=== PATIENT | male | born 1950 | race Caucasian/White ===

== ENCOUNTER 2016-05-01 10:55 | Emergency (ER) | payer MEDICARE, OTHER ==
[2016-05-01 11:03] VITALS: BP 153/81; PULSE 77; RESP 16; O2SAT 97
--- NOTE | 2016-05-01 11:37 | DRSVH ---
PROCEDURE: CT BRAIN WITHOUT CONTRAST ([id number]) INDICATIONS: LEFT SIDED WEAKNESS TECHNIQUE: Noncontrast 4.5 mm thick angled axial sections acquired from the foramen magnum to the vertex, with c oronal reformats. COMPARISON: None. FINDINGS: Image quality: Excellent. CSF spaces: Basal cisterns are patent. No extra-axial fluid collections. The ventricles are symmet juli in size and shape. Brain: There is a right frontal temporal focus of hemorrhage measuring approximately 51 mm AP by 43 m m transverse. There is significant surrounding vasogenic edema producing 6 mm right to left midline s hift. There is cerebral volume loss for age, with resultant ventricular and sulcal prominence. There are periventricular and deep white matter chronic small vessel ischemic changes. There is intracran ial internal carotid artery atherosclerosis. Skull and face: Calvarium and visualized facial bones appear intact, without suspicious lesions. Sinuses: Visualized sinuses and mastoids are clear. IMPRESSION: 1. Right frontal temporal focus of hemorrhage with vasogenic edema and midline shift as above. This could represent ischemic hemorrhage. However, underlying mass lesion with subsequent hemorrhage and v asogenic edema cannot be excluded. Recommend interval followup MRI brain with and without contrast af ter hemorrhage resolution for additional evaluation. The above findings were discussed with Dr. Everardo Hernandez on 05/01/16 at 11:29 AM. Dictated by: Teresita Castaneda M.D. on 05/01/2016 at 11:35 Approved by: Teresita Castaneda M.D. on 05/01/2016 at 11:35
--- NOTE | 2016-05-01 11:50 | ED.REPORT ---
HPI-Stroke / CVA May 01, 2016 ED Provider: Everardo Hernandez MD Patient is a 65 year old male who presents to the ED via EMS complaining of L sided weakness onset 2 months ago. When his symptoms started, he was experiencing tongue trembling, facial twitching, and L side facial numbness. His initial symptoms resolved after a week before progressing to extremity weakness. His symptoms have progressed to extreme weakness in his L leg and loss of sensation and movement in L arm. He is unable to ambulate independently. He is not experiencing speech deficits, incontinence, or any other symptoms. Per family, his decision making has been slightly impaired. He has not been to a doctor in 20 years and does not take any medications. Nursing Notes Stated Complaint: LEFT SIDE WEAKNESS Chief Complaint: Neuro Symptoms/ Deficits Nursing Notes Reviewed: Yes ([employer], not on any medicaitons) Allergies: Coded Allergies: No Known Allergies (Unverified , 05/01/16) General Time Seen by Provider: 11:35 Chief Complaint Weakness Left-sided Hx Obtained From: Patient, Spouse, Daughter Arrived By: Ambulance Time last known well 2 mo ago Sudden in Onset?: Yes Progression Since Onset: Gradually worsening Recent Healthcare: No recent doctor visit Past Medical History Past Medical History Melanoma (excised 20 years ago) Smoking History Current Every Day Smoker Social History Alcohol Use: 1-3 per day Other Social History: Good social support, Review of Systems Neurologic: Reports: Weakness (L side ), Denies: Slurred speech, Vision change Complete sys rev & neg: except as marked. Physical Exam Initial Vital Signs Vital Signs (First) Date Time Temp Pulse Resp B/P Pulse Ox O2 Delivery O2 Flow Rate FiO2 05/01/16 11:03 36.7 77 16 153/81 97 Room Air Initial VS: Reviewed, Vital signs normal Abdomen / GI: Soft, Non-tender Skin: Warm, Dry Psychiatric: Mood/affect normal, Behavior normal General/Constitutional: Awake, Alert, No acute distress Answers questions appropriately. Head / Eyes: Normocephalic Neck: Full range of motion Respiratory / Chest: No respiratory distress Cardiovascular: Heart rate NL, Regular rhythm, Heart sounds NL Neurologic: Speech NL Flaccid L arm paralysis and weakness in L leg Interpretation & Diagnostics Lab Results Interpretation Result Diagram: 05/01/16 1140 05/01/16 1140 Test 05/01/16 11:40 05/01/16 12:53 White Blood Count 9.4th/mm3 (3.8-10.1) Red Blood Count 4.57mil/mm3 (4.40-5.80) Hemoglobin 17.1g/dL (13.8-17.2) Hematocrit 46.2% (41.0-50.0) Mean Corpuscular Volume 101.1fL (81-100) Mean Corpuscular Hemoglobin 37.4pg (27.0-35.0) Mean Corpuscular Hemoglobin Concent 37.0% (32.0-37.0) Red Cell Distribution Width 11.2% (12.3-15.4) Platelet Count 254bil/L (150-400) Neutrophils (%) (Auto) 77.9% (40-74) Lymphocytes (%) (Auto) 12.8% (14-46) Monocytes (%) (Auto) 8.3% (4-12) Eosinophils (%) (Auto) 0.4% (0-5) Basophils (%) (Auto) 0.2% (0-3) Prothrombin Time 11.0sec (8.1-12.5) Prothromb Time International Ratio 1.03ratio Activated Partial Thromboplast Time 27.8sec (22.8-33.0) Sodium Level 131mEq/L (134-144) Potassium Level 4.4mEq/L (3.5-5.2) Chloride Level 92mEq/L (97-108) Carbon Dioxide Level 23mmol/L (18-29) Blood Urea Nitrogen 12mg/dL (8-27) Creatinine 0.81mg/dL (0.76-1.27) Estimat Glomerular Filtration Rate 101mL/min (>59) Glucose Level 113mg/dL (60-99) Calcium Level 10.1mg/dL (8.5-10.1) Total Bilirubin 0.5mg/dL (0.0-1.2) Aspartate Amino Transf (AST/SGOT) 38U/L (0-50) Alanine Aminotransferase (ALT/SGPT) 42U/L (0-44) Alkaline Phosphatase 72U/L (25-160) Troponin T < 0.010ug/L (0.0-0.011) Total Protein 8.0g/dL (6.4-8.4) Albumin 3.7g/dL (3.4-5.0) Urine Color Straw (YELLOW) Urine Appearance Hazy (CLEAR,HAZY) Urine pH 6.5 (5.0-8.0) Urine Specific Rosebud 1.005 (1.003-1.035) Urine Protein Negativemg/dL (NEG,TRACE) Urine Glucose (UA) Negativemg/dL (NEGATIVE) Urine Ketones 15mg/dL (NEGATIVE) Urine Occult Blood Negative (NEGATIVE) Urine Nitrite Negative (NEGATIVE) Urine Bilirubin Negative (NEGATIVE) Urine Urobilinogen Normalmg/dL (NORMAL) Urine Leukocyte Esterase Negative (NEGATIVE) Urine RBC 0-2/hpf (0-2) Urine WBC 0-5/hpf (0-5) Urine Epithelial Cells Occasional/hpf (NONE-MOD) Urine Crystals None seen (NONE SEEN) Urine Bacteria None/hpf (NONE-FEW) Urine Hyaline Casts None/lpf (NONE) Urine Granular Casts None seen (NONE SEEN) Urine Waxy Casts None seen (NONE SEEN) Urine Red Blood Cell Casts None seen (NONE SEEN) Urine White Blood Cell Casts None seen (NONE SEEN) Urine Mucus None seen (None Seen) Urine Trichomonas None seen (NONE SEEN) Urine Yeast None (NONE SEEN) Urinalysis Comment None Urine Culture Reflexed Not indicated Lab Results Interpretation: CBC normal + CMP normal Glucose normal Normal ECG Interpretation ECG Interpretation: normal sinus rate 76 Time: 12:16 Interpreted by: ED physician CT Head Interpretation CT BRAIN: IMPRESSION: 1. Right frontal temporal focus of hemorrhage with vasogenic edema and midline shift as above. This could represent ischemic hemorrhage. However, underlying mass lesion with subsequent hemorrhage and vasogenic edema cannot be excluded. Recommend interval followup MRI brain with and without contrast after hemorrhage resolution for additional evaluation. The above findings were discussed with Dr. Everardo Hernandez on 05/01/16 at 11:29 AM. Dictated by: Teresita Castaneda M.D. on 05/01/2016 at 11:35 Approved by: Teresita Castaneda M.D. on 05/01/2016 at 11:35 Study: Head CT no contrast Interpretation / Wet Read by: Interpret - Radiologist Re-Eval/Medical Decision Med Decision/Clinical Course This is a 65-year-old male who is brought by family with a complaint of worsening left-sided weakness with neurologic symptoms are progressive over the past 2 months. Reports he does not see doctors, he does not take any medicines- and this includes [id number] medications such as aspirin, but that the beginning of February he developed some "twitching" of the left-sided his face. It was then followed by progressive weakness of left arm. Her daughter who is the one who brought patient in today said that she visited for [facility] and nothing was clinically apparent to her at that time-although apparently has been having left arm and left leg symptoms. They have progressed which she visited before Charmaine, he is clearly having troubles and she tried to persuade and come in was unsuccessful. However his weakness has been progressive he now has a flaccid paralysis the left upper extremity, he cannot ambulate, he cannot perform ADLs, and she is finally been able to convince him to come in. He denies headache. He denies speech changes. His insight has been poor times according to the family said he would nausea once and ascites having weakness and then make a statement or attempted activity which it was clear he could not do because of the known weakness. On exam the patient's awake alert mentating. He has a skin lesion on the right spiritism-he does have a prior history of a melanoma removed 20+ years ago. He has a flaccid paralysis left arm, and severe weakness in the left leg and is able to lift it up in the bed with immediate drift similar falls down and touches the bed. The the NIH stroke scale for full detail testing. He would not cooperate for peripheral vision testing for visual huggins. A contrast head CT reveals marked abnormality with components of a hemorrhage, and the possibility of an underlying mass. Labwork was normal. Glucose was normal. Images were sent to [facility], who after review as accepted the patient in transfer. The accepting neurosurgeon is Dr. Park cases also been discussed with the ED attending Dr. Peña. he is being transferred by [facility]. He has been stable for 2 months, is awake alert his vitals are normal. His mildly hypertensive but has not required any aggressive management in the department. Source of Hx: Old records (none in EMR) Re-Evaluation/Progress : Time of Eval: 11:45 )( Re-Eval Neurologic Exam: Speech normal Re-Evaluation/Progress Note: Discussed desire to transfer to [place]. Patient understands and agrees with plan. All questions addressed at this time. NIH Stroke Scale : Level of Consciousness: Alert and responsive (0) Ask Month & Age: Both questions right (0) Open/Close Eyes/Hand Utility System Operator: Performs both tasks (0) Horizontal EO Movements: None (0) Visual Huggins: No visual loss (0) (Does not understand peripheral vision test, unable to assess) Facial Palsy: Normal symmetry (0) Right Arm Motor Drift (10s): No drift 10 sec (0) Left Arm Motor Drift (10s): No effort, limb fails (3) Right Leg Motor Drift (5s): No drift 5 sec (0) Left Leg Motor Drift (5s): Drift, hits bed (2) Limb Ataxia FNF/Heel-Greer: No ataxia (0) Sensation (Arms/Legs/Face): P-prick dull but felt (1) (L side ) Language Aphasia: No aphasia, normal (0) Dysarthria: No dysarthria, normal (0) NIHSS Score: 6 Time NIHSS Performed: 11:51 Date NIHSS Performed: May 01, 2016 Consultation #1: Call Returned at: 11:57 Note: Called [facility] to discuss desire for transfer. They will review imaging and return call. Consultation #2: Call Returned at: 13:02 Note: Discussed patient's case. Vivian will see patient at [facility]. Differential Diagnosis: Positive: Intraparench hemorrhage, Malignancy, Mass lesion (suspected), Negative: Atrial fibrillation, Atypical migraine, Cartwright's Palsy, Cerebellar hemorrhage, Closed head injury, Electrolyte disorder, Encephalitis, Epidural hemorrhage, Hyperglycemia, Hypoglycemia, Meningitis, Mult Scleros exacerbation, Seizure disorder, Subarachnoid hemorrhage, Subdural hemorrhage, Systemic infection Counseled Regarding: Diagnosis, Lab results, Need for transfer Patient Discharge & Departure Impression: Primary Impression: Intracranial hemorrhage Additional Impressions: Intracranial mass Left hemiplegia Disposition: Transfer, Acute Care Facility Transfer Requested at: 11:57 Receiving Hospital: [facility] Transfer Accepted: Yes Transfer Accepted at: 13:02 Transfer Reason: Higher level of care Spoke with: Hospitalist Patient Status: Stable for transfer Patient Informed: Yes Crit Care Except Billable Proc Time Spent: 30-74 minutes Services Performed: Patient management by me, Time spent at bedside, Reviewing test results, Reviewing imaging, Discussing patient care, Documentation in record, Time with fam/surrogate Scribe Attestation Portions of this note were transcribed by Steve Norton. I, Dr. Hernandez personally performed the history, physical exam and medical decision-making; I reviewed and confirmed the accuracy of the information in the transcribed note. Signed by: Steve Norton 05/01/16, 1348 Everardo Hernandez MD May 01, 2016 11:50 STEVE NORTON May 01, 2016 12:06
[2016-05-01 12:15] LABS: INR 1.03 ratio
[2016-05-01 12:17] LABS: BASOPHILS % (AUTO) 0.2 % (0-3); EOSINOPHILS % (AUTO) 0.4 % (0-5); MONOCYTES % (AUTO) 8.3 % (4-12); Mean Corpuscular Hemoglobin 37.4 pg (27.0-35.0); Mean Corpuscular Volume 101.1 fL (81-100); NEUTROPHILS % (AUTO) 77.9 % (40-74); Platelet Count 254 bil/L (150-400)
[2016-05-01 12:28] LABS: TROPONIN T < 0.010 ug/L (0.0-0.011)
[2016-05-01 13:45] VITALS: BP 146/79; PULSE 77; RESP 20; O2SAT 93
[2016-05-01 13:48] LABS: APPEARANCE,URINE HAZY (CLEAR,HAZY); COLOR,URINE STRAW (YELLOW); OCCULT BLOOD,URINE NEGATIVE (NEGATIVE); PH,URINE 6.5 (5.0-8.0); UROBILINOGEN,URINE NORMAL (NORMAL)
[2016-05-23] MEDS ORDERED: DOCU-41 PO (13:58)
[2016-05-23] MEDS ORDERED: PHN100C PO (13:58)
[2016-05-23] MEDS ORDERED: ALBU8.5H2 INHALATION (13:58)
[2016-05-23] MEDS ORDERED: NIC7 TRANSDERM (13:58)
[2016-05-23] MEDS ORDERED: SODI1TAB2 PO (13:58)
[2016-05-23] MEDS ORDERED: OXYC5TAB72 PO (13:58)
[2016-05-23] MEDS ORDERED: DEX1 PO (13:58)
[2016-05-23] MEDS ORDERED: PANT40TA3 PO (13:58)
[2016-05-23] MEDS ORDERED: TRAZ-115 PO (13:58)
[2016-05-23] MEDS ORDERED: MELA1TAB28 PO (13:58)
[2016-05-23] MEDS ORDERED: ENOX40DI8 SUBQ (13:58)
[2016-06-13] MEDS ORDERED: TEMODAR PO (13:55)
[2016-09-06] MEDS ORDERED: CHOL200025 PO (14:07)
== END 2016-05-01 14:21 | disposition short-term general hospital (02) ==
LOC: SED 10:55
DX: I62.9 Nontraumatic intracranial hemorrhage, unspecified (principal); G81.04 Flaccid hemiplegia affecting left nondominant side; R90.0 Intracranial space-occupying lesion found on diagnostic imaging of central nervous system; F17.200 Nicotine dependence, unspecified, uncomplicated

== ENCOUNTER 2016-08-20 17:42 | Emergency (ER) | payer OTHER ==
[~2016-08-20] VITALS: Ht 177.8 cm; Wt 79.5 kg
[~2016-08-20 17:42] MED LIST: ALBU8.5H2 INHALATION; DEX1 PO; DOCU-41 PO; ENOX40DI8 SUBQ; MELA1TAB28 PO; NIC7 TRANSDERM; OXYC5TAB72 PO; PANT40TA3 PO; PHN100C PO; SODI1TAB2 PO; TEMODAR PO; TRAZ-115 PO
[2016-08-20 17:48] VITALS: BP 139/78; PULSE 69; O2SAT 96
--- NOTE | 2016-08-20 18:11 | ED.REPORT ---
HPI-Trauma Minor / Fall Date of Service August 20, 2016 ED Provider: The patient is a 65 year old male with history of stage IV glioblastoma with recent resection, who presents to the emergency department by EMS after he had a fall. The patient was transferring from bed to his wheelchair when his leg came out from under him and he fell to the floor. He hit his head and ribs. He did not lose consciousness. At this time he complains of a mild headache and mild rib pain. He denies visual changes, numbness, weakness, nausea or vomiting. He is not on any blood thinners. Nursing Notes Stated Complaint: GLF Chief Complaint: Head, Face, Neck Trauma Nursing Notes Reviewed: Yes Allergies: Coded Allergies: No Known Allergies (Unverified , 05/22/16) Scheduled ([temodar]) 150 MG PO M-F/RADONC Albuterol HFA (Proair HFA) 8.5 Gm Hfa.aer.ad 2 PUFFS INHALATION q6hrs Dexamethasone (Dexamethasone) 1 Mg Tab 4 MG PO BID OF 07/31/16 Enoxaparin Sodium (Enoxaparin Sodium) 40 Mg/0.4 Ml Syringe 40 MG SUBQ DAILY Melatonin/Pyridoxine HCl (B6) (Melatonin 3 mg Tablet) 1 Each Tablet 2 EACH PO HS Nicotine 7 mg/24 hr Patch (Nicotine 7 mg/24 hr Patch) 1 Each Patch.td24 1 PATCH TRANSDERM DAILY Pantoprazole DR (Pantoprazole DR) 40 Mg Tablet.dr 40 MG PO DAILY Phenytoin Sodium ER (Dilantin) 100 Mg Capsule 500 MG PO HS Sodium Chloride (Sodium Chloride) 1 Gm Tablet 1 GM PO DAILY Scheduled PRN Docusate Sodium (Colace) 100 Mg Capsule 100 MG PO BID PRN PRN For Constipation Trazodone (Trazodone) 50 Mg Tablet 25 MG PO HS PRN PRN Insomnia oxyCODONE (oxyCODONE) 5 Mg Tablet 5-10 MG PO Q4H PRN PRN For Pain General Time Seen by MD: 18:11 Chief Complaint Fall Hx Obtained From: Patient, Spouse, EMS Arrived By: Ambulance Onset Occurred: 1 - 4 hours ago Symptom Duration: Since onset Location: Chest (rib pain) Head Quality: Painful Severity: Current: Mild Severity: Maximum: Mild Recent Healthcare: Recent doctor visit, Previous surgery (brain surgery) Similar Sx Previous: No Past Medical History Past Medical History Notes: Oncologist: Dr. Bassett Past Medical History Melanoma (excised 20 years ago) Stage IV glioblastoma with recent resection Past Surgical History Brain tumor resection completed at [facility] Family History Noncontributory Smoking History Current Every Day Smoker Social History Alcohol Use: 1-3 per day Other Social History: Good social support, , Local resident Ambulatory Status Wheelchair Review of Systems Neurologic: Reports: Headache, Denies: Change LOC, Numbness, Syncope, Vision change, Weakness Complete sys rev & neg: except as marked. Cardiovascular: Reports: Chest pain (rib pain) GI: Denies: Nausea, Vomiting Physical Exam Initial Vital Signs Vital Signs (First) Date Time Temp Pulse Resp B/P Pulse Ox O2 Delivery O2 Flow Rate FiO2 08/20/16 17:48 37.6 69 139/78 96 Room Air 08/20/16 20:42 16 Initial VS: Reviewed, Vital signs normal Head / Eyes: Atraumatic, Normocephalic, PERRL ENT: Mucous membranes moist, Conjunctiva normal, No scleral icterus Cardiovascular: Regular rate & rhythm, Heart sounds normal, Intact distal pulses Abdomen / GI: Soft, Non-tender, No guarding, No rebound, No distention Extremities: Vascular intact, Neuro intact, No swelling, No tenderness Neurologic: Alert, Oriented, Nonfocal Psychiatric: Mood/affect normal, Behavior normal, Normal thought content General/Constitutional: Awake, Alert Neck: Atraumatic, Supple, Full range of motion, No swelling, Non-tender, No midline vertebral tend Respiratory / Chest: Breath sounds NL, Breath sounds = bilat, No respiratory distress, No rales, No rhonchi, No wheezing, No retractions Left lateral rib tenderness with compression Upper Extremity / MS: Atraumatic, No erythema, No deformity, Neurologic intact , Vascular intact Lower Extremity / Pelvis / MS: Atraumatic, No deformity, Neurologic intact, Vascular intact Skin: Color NL Rash / Lesion Notes: Circular area of chronic picking to his right face with some dried blood. Interpretation & Diagnostics X-Ray Chest Interpretation Chest Xray Interpretation: IMPRESSION: Healing left posterior lateral seventh rib fracture. Dictated by: Hannah Giang M.D. on 08/20/2016 at 19:01 Interpretation / Wet Read by: Interpret - Radiologist CT Head Interpretation IMPRESSION: 1. Increasing right frontal mass, with increased surrounding vasogenic edema within the right cerebral hemisphere. Slightly increased leftward midline shift compared to 3.27.17. 2. No acute intracranial abnormality. Dictated by: Hannah Giang M.D. on 08/20/2016 at 19:02 Study: Head CT no contrast Interpretation / Wet Read by: Interpret - Radiologist Re-Eval/Medical Decision Med Decision/Clinical Course Patient presents after fall, he hit his head. He has headache and left rib pain. An acute rib fracture was ruled out. The patient's CT shows an increase in the size of his tumor with some edema. The patient had an MRI done on Saturday , the comparison CT was from about 1 month ago. Patient is alert he does not want surgery or radiation. I spoke with the on-call oncologist and they will follow-up with him this week to discuss treatment. Patient is already on Decadron. Source of Hx: Old records, EMS, Family Re-Evaluation/Progress #1: Time of Eval: 19:17 Re-Evaluation/Progress Note: Rechecked the patient. His oncologist is Dr. Bassett. His surgery was completed at [facility]. Discussed CT findings. His spouse states they were aware that the tumor was larger. He is currently taking Dexamethasone. The patient does not want to have any additional surgeries. Re-Evaluation/Progress #2: Time of Eval: 19:49 Re-Evaluation/Progress Note: Discussed plan for discharge with outpatient followup. Consultation : Referral / Consult Name: Steve Gomez MD Consulted With: Medical Art Therapist Call Returned at: 19:30 Note: Spoke with the on-call physician for Dr. Gomez. He agrees with plan for discharge. Counseled Regarding: Diagnosis, Need for follow-up, When/why to return to ED Discharge & Departure Impression: Primary Impression: Fall Encounter type: initial encounter Qualified Code: W19.XXXA - Unspecified fall, initial encounter Additional Impression: Glioblastoma Disposition: Home Discharge Condition All VS Reviewed: Yes Condition: Stable Additional Instructions: Thank you for entrusting us with your care today. The CT scan does show the tumor has increased in size and there is some surrounding swelling. It is important that you have close followup. Call Dr. Bassett's office tomorrow morning to schedule an appointment in the next day or 2. Continue to take the Dexamethasone as perviously prescribed. Return to the emergency department for increased headache, or for any other new or concerning symptoms. Referrals: Lamar Monique MD (PCP) Reginald Bassett MD Attestation Portions of this note were transcribed by Paradise Marvin. I, Dr. Sarabia personally performed the history, physical exam and medical decision-making; I reviewed and confirmed the accuracy of the information in the transcribed note. Signed by: Shruthi Sanches, 08/20/2016 at 2000. copies to: Lamar Monique MD; Reginald Bassett MD, Jena M MD August 20, 2016 18:11 Paradise Marvin August 20, 2016 18:24
--- NOTE | 2016-08-20 19:04 | DRSVH ---
PROCEDURE: X-RAY LEFT RIBS INCLUDEING PA CHEST, MINUMUM THREE VIEWS ([id number]) INDICATIONS: fall TECHNIQUE: 2 views of the left ribs were acquired, along with a single view chest. COMPARISON: [facility], , CHEST 1 VIEW, 07/16/2016, 13:46. FINDINGS: Surgical changes and devices: None. Bones and chest wall: There is a healing fracture of the left posterolateral seventh rib. No suspicio us bony lesions. Overlying soft tissues appear unremarkable. Lungs and pleura: No pleural effusions or pneumothorax. Lungs appear clear. Mediastinum: Mediastinal contours appear normal. Heart size is normal. IMPRESSION: Healing left posterior lateral seventh rib fracture. Dictated by: Hannah Giang M.D. on 08/20/2016 at 19:01 Approved by: Hannah Giang M.D. on 08/20/2016 at 19:02
--- NOTE | 2016-08-20 19:06 | DRSVH ---
PROCEDURE: CT BRAIN WITHOUT CONTRAST ([id number]) INDICATIONS: fall TECHNIQUE: Noncontrast 4.5 mm thick angled axial sections acquired from the foramen magnum to the vertex, with c oronal reformats. COMPARISON: [facility], MR, STROKE PROTOCOL, 07/16/2016, 16:15. [facility], CT, HEAD WITHO UT CONTRAST, 07/16/2016, 13:44. FINDINGS: Image quality: Excellent. CSF spaces: Basal cisterns are patent. No extra-axial fluid collections. The ventricles are symmet juli in size and shape. Brain: No intracranial bleeds. Diffuse subcortical and periventricular low density within the right frontal lobe, right basal ganglia, and right insula is present. There is increased mass effect within the right insula. Diffuse right-sided sulcal effacement is present. There is a roughly 8 mm of subfa lcine shift, which is slightly increased compared to 3.27.17. There is cerebral volume loss for age, with resultant ventricular and sulcal prominence. There are periventricular and deep white matter ch ronic small vessel ischemic changes. There is intracranial internal carotid artery atherosclerosis. Skull and face: Right frontoparietal craniotomy has been performed. Calvarium and visualized facial b ones otherwise appear intact, without suspicious lesions. Sinuses: Visualized sinuses and mastoids are clear. IMPRESSION: 1. Increasing right frontal mass, with increased surrounding vasogenic edema within the right cerebra l hemisphere. Slightly increased leftward midline shift compared to 3.27.17. 2. No acute intracranial abnormality. Dictated by: Hannah Giang M.D. on 08/20/2016 at 19:02 Approved by: Hannah Giang M.D. on 08/20/2016 at 19:05
[2016-08-20 20:15] VITALS: BP 130/61; PULSE 86; O2SAT 93
[2016-08-20 20:42] VITALS: BP 123/72; PULSE 89; RESP 16; O2SAT 93
[2016-09-06] MEDS ORDERED: CHOL200025 PO (14:07)
== END 2016-08-20 20:46 | disposition home or self-care (01) ==
LOC: EDBD 17:42 → SED 17:42
DX: R51 Headache (principal); R07.81 Pleurodynia; C71.9 Malignant neoplasm of brain, unspecified; W06.XXXA Fall from bed, initial encounter; Y93.89 Activity, other specified; Y92.122 Bedroom in nursing home as the place of occurrence of the external cause; Y99.8 Other external cause status; F17.200 Nicotine dependence, unspecified, uncomplicated; Z79.899 Other long term (current) drug therapy